=== PATIENT | male | born 1985 | race Caucasian/White ===

== ENCOUNTER 2018-09-12 12:55 | Inpatient (IN) | payer OTHER ==
[~2018-09-12] VITALS: Ht 172.7 cm; Wt 83.0 kg
[2018-09-12] MEDS ORDERED: OXYcodone/APAP 5/325MG TABLET ONE (13:15)
[2018-09-12] MEDS ORDERED: CYCLOBENZAPRINE 10 MG TABLET ONE (13:15)
[2018-09-12] MEDS ORDERED: ONDANSETRON ODT 4 MG ONE (13:15)
--- NOTE | 2018-09-12 13:21 | NUR ---
Bib by [email or web address] from for back pain. Medicated/Imaging completed/medically cleared but patient unable to road test as pain uncontrolled. Motor/strength exam unremarkable Denies spinal hx or bowel or bladder difficulties
--- NOTE | 2018-09-12 13:21 | NUR ---
MEDICATED PER EMAR PLSN TO ROAD TEST-[facility]
[2018-09-12] MEDS ORDERED: ONDANSETRON ODT 4 MG PO ONE (13:30)
[2018-09-12] MEDS ORDERED: CYCLOBENZAPRINE 10 MG TABLET PO ONE (13:30)
[2018-09-12] MEDS ORDERED: OXYcodone/APAP 5/325MG TABLET PO ONE (13:30)
--- NOTE | 2018-09-12 13:58 | NUR ---
PAIN REMAINS AT 6/10- PATIENT UNABLE TO ROAD TEST PROVIDER MADE AWARE
--- NOTE | 2018-09-12 14:27 | NUR ---
ROAD TEST STILL UNSUCCESSFUL PROVIDER MADE AWAR- PLAN TO ADMIT
[2018-09-12] MEDS ORDERED: HYDROmorphone 1 MG/ML, 1ML VIAL ONE (14:41)
--- NOTE | 2018-09-12 14:50 | NUR ---
PROVIDER REMINDED FOR ADMIT ORDER MEDICATED PER EMAR FOR CONTINUED PAIN TOLERATING PO FLUIDS PLACED ON POX/NIBP-VSS UPDATED ON ESTIMATED POC
[2018-09-12] MEDS ORDERED: ONDANSETRON 2MG/ML, 2ML IVPush ONE (15:00)
[2018-09-12] MEDS ORDERED: MORPHINE SULFATE 4 MG/ML, 1ML IVPush PRN (15:00)
[2018-09-12] MEDS ORDERED: HYDROmorphone 2 MG/ML, 1ML IV ONE (15:00)
--- NOTE | 2018-09-12 15:07 | NUR ---
UP TO RESTROOM TO VOID- NO DIFFICULTY
[2018-09-12] MEDS ORDERED: ONDANSETRON ODT 4 MG PO PRN (16:00)
[2018-09-12] MEDS ORDERED: GUAIFENESIN/DM 200-20MG, 10ML UDC PO PRN (16:00)
[2018-09-12] MEDS ORDERED: ACETAMINOPHEN 325 MG TABLET PO PRN (16:00)
[2018-09-12] MEDS ORDERED: ZOLPIDEM 5MG TABLET PO PRN (16:00)
[2018-09-12] MEDS ORDERED: ENALAPRILAT 1.25 MG/ML, 2ML IVPush PRN (16:00)
[2018-09-12 16:22] VITALS: BP 110/67
[2018-09-12] MEDS: KETOROLAC 30 MG/1 ML IV PRN (19:38)
[2018-09-12 19:40] VITALS: BP 103/66
[2018-09-12] MEDS: morphine SULFATE 10 MG/ML, 1ML IVPush PRN ×2 (20:42→23:45)
[2018-09-12] MEDS: METHOCARBAMOL 500 MG TABLET PO PRN (22:02)
[2018-09-13 00:37] VITALS: BP 99/63
[2018-09-13] MEDS: KETOROLAC 30 MG/1 ML IV PRN ×2 (01:32→09:17)
[2018-09-13] MEDS: METHOCARBAMOL 500 MG TABLET PO PRN (05:46)
[2018-09-13 07:20] VITALS: BP 107/62
[2018-09-13] MEDS ORDERED: GADOBUTROL 10 MMOL/10 ML PFS ONE (08:49)
[2018-09-13] MEDS: LIDODERM 5% PATCH TD SCH (09:18)
[2018-09-13] MEDS: morphine SULFATE 10 MG/ML, 1ML IVPush PRN ×3 (10:39→22:03)
[2018-09-13 13:41] VITALS: BP 109/69
[2018-09-13] MEDS: METHOCARBAMOL 750 MG TABLET PO SCH ×2 (16:39→20:51)
[2018-09-13] MEDS: KETOROLAC 30 MG/1 ML IV SCH ×2 (16:39→22:05)
[2018-09-13 21:12] VITALS: BP 110/78
[2018-09-14 00:45] VITALS: BP 105/63
[2018-09-14] MEDS: KETOROLAC 30 MG/1 ML IV SCH ×2 (04:13→10:14)
[2018-09-14 07:26] VITALS: BP 116/71
[2018-09-14] MEDS: METHOCARBAMOL 750 MG TABLET PO SCH (08:58)
[2018-09-14] MEDS: LIDODERM 5% PATCH TD SCH (08:58)
[2018-09-14 10:37] LABS: ANION GAP 7 mmol/L (5-15); CALCIUM 8.9 mg/dL (8.5-10.1); CHLORIDE 105 mmol/L (98-107)
[2018-09-14 10:39] LABS: CREATININE 1.01 mg/dL (0.7-1.3)
[2018-09-14] MEDS ORDERED: KETO10TA PO (11:52)
[2018-09-14] MEDS ORDERED: METH750T2 PO (11:52)
[2018-09-14] MEDS ORDERED: METH4TAB PO (11:52)
[2018-09-14] MEDS ORDERED: LIDO700A20 TD (11:52)
[2018-09-14 12:40] VITALS: BP 111/72
== END 2018-09-14 13:15 | disposition home or self-care (01) | DRG 552 ==
LOC: ED 14:39 → EDIP 15:00 → 4NOR 16:18 → DCLOUNGE 09-14 13:00
PROVIDERS: ADMIT Internal Medicine; ATTEND Internal Medicine
DX: M54.5 Low back pain (principal); M41.9 Scoliosis, unspecified; M54.16 Radiculopathy, lumbar region
CPT/HCPCS: 36415; 72158; 80048; 96374; 99285; A9585; G0378; J1170; J1885; J7509; Q0162; J2270